=== PATIENT | female | born 1990 | race Hispanic/Latino ===

== ENCOUNTER 2023-01-01 12:13 | Emergency (ER) | payer OTHER, MEDICAID ==
[~2023-01-01] VITALS: Ht 149.9 cm; Wt 142.9 kg
[2023-01-01 12:52] LABS: BASOPHILS % (AUTO) 0.3 % (0.0-5.0); EOSINOPHILS % (AUTO) 0.4 % (0.0-8.0); HEMATOCRIT 35.1 % (36-48); LYMPHOCYTES % (AUTO) 17.2 % (21.0-51.0); MEAN CORPUSCULAR HEMOGLOBIN 27.3 pg (27.0-33.0); MEAN CORPUSCULAR HGB CONC 32.5 g/dL (32.0-36.0); MEAN CORPUSCULAR VOLUME 84.2 fL (79-99); NEUTROPHILS % (AUTO) 72.2 % (40.0-77.0); PLATELET COUNT (AUTO) 258 K/uL (130-400); RED BLOOD CELL COUNT(AUTO) 4.17 MIL/uL (4.00-5.50); RED CELL DISTRIBUTION WIDTH 13.6 % (11.0-15.5); WHITE BLOOD COUNT (AUTO) 9.1 K/uL (4.8-10.8)
[2023-01-01 13:04] LABS: CREATININE 0.6 mg/dL (0.5-1.5); POTASSIUM 3.5 mmol/L (3.5-5.1)
[2023-01-01 13:06] LABS: APPEARANCE,URINE CLOUDY (CLEAR); BILIRUBIN,URINE NEGATIVE (NEGATIVE); COLOR,URINE YELLOW (YELLOW); GLUCOSE, URINE (UA) NEGATIVE (NEGATIVE); KETONES,URINE 20 mg/dL (NEGATIVE); LEUKOCYTE ESTERASE ,URINE 75 Leu/uL (NEGATIVE); NITRATE,URINE NEGATIVE (NEGATIVE); PH,URINE 7.5 (5.0-8.0); PROTEIN,URINE 30 mg/dL (NEGATIVE); UROBILINOGEN,URINE 0.2 mg/dL (0.2-1.0)
[2023-01-01 13:19] LABS: BACTERIA,URINE FEW /HPF (None Seen); MUCUS,URINE RARE LPF (None Seen); SQUAMOUS EPITHELIAL CELL,UR MANY /HPF (0-2)
[2023-01-01 13:30] LABS: ALBUMIN 2.6 g/dL (3.5-5.0); TOTAL PROTEIN, SERUM 7.1 g/dL (6.0-8.3)
[2023-01-01] MEDS ORDERED: ACETAMINOPHEN 500 MG TABLET ONE (13:55)
[2023-01-01] MEDS ORDERED: ONDANSETRON 4MG INJ IVP ONE (14:00)
[2023-01-01] MEDS ORDERED: ACETAMINOPHEN 500 MG TABLET PO ONE (14:00)
[2023-01-01] MEDS ORDERED: ONDANSETRON 4MG INJ ONE (14:00)
[2023-01-01] MEDS ORDERED: MECL-226 PO (14:58)
[2023-01-01 15:04] VITALS: BP 122/55
== END 2023-01-01 15:40 | disposition home or self-care (01) ==
LOC: EDH 12:13
DX: O26.891 Other specified pregnancy related conditions, first trimester (principal); J30.9 Allergic rhinitis, unspecified; Z3A.10 10 weeks gestation of pregnancy; Z98.890 Other specified postprocedural states
CPT/HCPCS: 99283; 96374; 80053; 84702; 85025; 87088; 81001; 36415; J2405

== ENCOUNTER 2023-05-06 23:26 | Observation (INO) | payer OTHER, MEDICAID ==
[~2023-05-06] VITALS: Ht 149.9 cm; Wt 158.8 kg
[~2023-05-06 23:26] MED LIST: MECL-226 PO
[2023-05-07] MEDS ORDERED: LACTATED RINGERS 1000ML 1,000 ML IV SCH
[2023-05-07 00:21] LABS: APPEARANCE,URINE CLEAR (CLEAR); BILIRUBIN,URINE NEGATIVE (NEGATIVE); COLOR,URINE LIGHT-YELLOW (YELLOW); GLUCOSE, URINE (UA) NEGATIVE (NEGATIVE); KETONES,URINE NEGATIVE (NEGATIVE); LEUKOCYTE ESTERASE ,URINE 250 Leu/uL (NEGATIVE); NITRATE,URINE NEGATIVE (NEGATIVE); OCCULT BLOOD,URINE NEGATIVE (NEGATIVE); PROTEIN,URINE 20 mg/dL (NEGATIVE); UROBILINOGEN,URINE 0.2 mg/dL (0.2-1.0)
[2023-05-07 00:30] LABS: MUCUS,URINE RARE LPF (None Seen); SQUAMOUS EPITHELIAL CELL,UR MOD /HPF (0-2)
[2023-05-07 01:25] LABS: AMPHET/METH SCREEN,URINE NEGATIVE (NEGATIVE); BARBITURATE SCREEN, URINE NEGATIVE (NEGATIVE); BENZODIAZEPINES SCREEN,URINE NEGATIVE (NEGATIVE); CANNABINOID SCREEN,URINE NEGATIVE (NEGATIVE); COCAINE SCREEN,URINE NEGATIVE (NEGATIVE); OPIATE SCREEN,URINE NEGATIVE (NEGATIVE); PHENCYCLIDINE SCREEN,URINE NEGATIVE (NEGATIVE)
[2023-05-07 08:26] VITALS: BP 141/67
== END 2023-05-07 08:39 | disposition home or self-care (01) ==
LOC: EDH 23:26 → LDH 23:27
PROVIDERS: ADMIT Obstetrics & Gynecology; ATTEND Obstetrics & Gynecology
DX: O99.891 Other specified diseases and conditions complicating pregnancy (principal); M54.50 Low back pain, unspecified; R10.32 Left lower quadrant pain; R10.2 Pelvic and perineal pain; Z3A.37 37 weeks gestation of pregnancy; Z79.899 Other long term (current) drug therapy; Z98.891 History of uterine scar from previous surgery
CPT/HCPCS: 96361; 59025; 96360; 80305; 87077; 87088; 87186; 81001; G0378 ×7; J7120

== ENCOUNTER 2023-05-17 11:00 | Inpatient (IN) | payer OTHER, MEDICAID ==
[~2023-05-17] VITALS: Ht 149.9 cm; Wt 159.2 kg
[2023-05-17 12:23] LABS: BASOPHILS % (AUTO) 0.3 % (0.0-5.0); EOSINOPHILS % (AUTO) 1.1 % (0.0-8.0); HEMATOCRIT 33.9 % (36-48); LYMPHOCYTES % (AUTO) 23.5 % (21.0-51.0); MEAN CORPUSCULAR HEMOGLOBIN 27.2 pg (27.0-33.0); MEAN CORPUSCULAR HGB CONC 32.4 g/dL (32.0-36.0); MEAN CORPUSCULAR VOLUME 83.7 fL (79-99); MONOCYTES % (AUTO) 7.2 % (3.0-13.0); NEUTROPHILS % (AUTO) 66.9 % (40.0-77.0); PLATELET COUNT (AUTO) 222 K/uL (130-400); RED BLOOD CELL COUNT(AUTO) 4.05 MIL/uL (4.00-5.50); RED CELL DISTRIBUTION WIDTH 14.4 % (11.0-15.5); WHITE BLOOD COUNT (AUTO) 8.9 K/uL (4.8-10.8)
[2023-05-17 13:57] LABS: RAPID PLASMA REAGIN NONREACTIVE (NONREACTIVE)
[2023-05-19] MEDS ORDERED: LACTATED RINGERS 1000ML 1,000 ML IV SCH (08:00)
[2023-05-19] MEDS ORDERED: LACTATED RINGERS 1000ML 1,000 ML IV PRN (08:00)
[2023-05-19] MEDS ORDERED: CEFAZOLIN SODIUM 1 GM VIAL IVPB PRN (08:00)
[2023-05-19] MEDS ORDERED: FENTANYL CITRATE PF 50 MCG/1 ML 2ML VIAL ONE (08:53)
[2023-05-19] MEDS ORDERED: ROPIVACAINE 0.2% 100ML VIAL 100 ML EP SCH (09:00)
[2023-05-19] MEDS ORDERED: LACTATED RINGERS 500 ML 500 ML IV PRN (09:00)
[2023-05-19] MEDS ORDERED: EPHEDRINE SULFATE 50 MG/ML AMPULE IVP PRN (09:00)
[2023-05-19] MEDS ORDERED: NALOXONE HCL 0.4 MG/1 ML ML IV PRN (09:00)
[2023-05-19] MEDS ORDERED: MORPHINE PF 100MG/10ML AMP IV ONE (09:04)
[2023-05-19] MEDS ORDERED: ONDANSETRON 4MG INJ ONE (09:27)
[2023-05-19] MEDS ORDERED: OXYTOCIN 10 USP UNITS/ML ONE (09:51)
[2023-05-19 12:31] LABS: APPEARANCE,URINE CLOUDY (CLEAR); BILIRUBIN,URINE NEGATIVE (NEGATIVE); COLOR,URINE YELLOW (YELLOW); GLUCOSE, URINE (UA) NEGATIVE (NEGATIVE); KETONES,URINE NEGATIVE (NEGATIVE); LEUKOCYTE ESTERASE ,URINE 500 Leu/uL (NEGATIVE); NITRATE,URINE NEGATIVE (NEGATIVE); OCCULT BLOOD,URINE NEGATIVE (NEGATIVE); PH,URINE 6.5 (5.0-8.0); PROTEIN,URINE 100 mg/dL (NEGATIVE); UROBILINOGEN,URINE 0.2 mg/dL (0.2-1.0)
[2023-05-19 12:39] LABS: BACTERIA,URINE RARE /HPF (None Seen); MUCUS,URINE RARE LPF (None Seen); OTHER CASTS, URINE 8 /LPF (None Seen); SQUAMOUS EPITHELIAL CELL,UR MANY /HPF (0-2); TRANSITIONAL EPI CELLS,URINE RARE /HPF (None Seen); WBC,URINE 26-50 /HPF (0-1)
[2023-05-19 12:43] VITALS: BP 102/49; PULSE 66; RESP 20
[2023-05-19] MEDS ORDERED: CEFAZOLIN SODIUM 1 GM VIAL IVPB SCH (13:00)
[2023-05-19] MEDS ORDERED: OXYTOCIN-LR 30 UNITS/500ML 500 ML IV PRN (13:00)
[2023-05-19] MEDS ORDERED: MEPERIDINE-PF 75 MG/ML SYG IM PRN (13:00)
[2023-05-19] MEDS ORDERED: PROMETHAZINE HCL 25 MG/ML 1ML AMPULE IM PRN (13:00)
[2023-05-19] MEDS ORDERED: 0.9%NACL 10ML VIAL IVP PRN (13:00)
[2023-05-19] MEDS ORDERED: AEC81 PO (13:02)
[2023-05-19] MEDS ORDERED: PREN1TAB80 PO (13:02)
[2023-05-19] MEDS: DEXTROSE 5 %-0.45 % NACL 1,000 ML IV PRN (15:44)
[2023-05-19 16:12] VITALS: BP 139/87; PULSE 69; RESP 16
[2023-05-19] MEDS ORDERED: CEFAZOLIN SODIUM 2 GM VIAL ONE (17:58)
[2023-05-19] MEDS: CEFAZOLIN SODIUM 1 GM VIAL IVPB SCH (18:02)
[2023-05-19 19:40] VITALS: BP 160/87; PULSE 66; RESP 18
[2023-05-19 23:55] VITALS: BP 163/82; PULSE 70; RESP 18
[2023-05-20] MEDS ORDERED: ACETAMINOPHEN WITH CODEINE 1 TAB TAB PO PRN
[2023-05-20] MEDS ORDERED: BISACODYL 10 MG SUPP.RECT RC PRN
[2023-05-20] MEDS ORDERED: ACETAMINOPHEN 500 MG TABLET PO PRN
[2023-05-20] MEDS ORDERED: HYDROCODONE/ACETAMINOPHEN 5/325 MG TAB PO PRN
[2023-05-20] MEDS ORDERED: LANOLIN 30GM OINTMENT TP PRN
[2023-05-20] MEDS ORDERED: SIMETHICONE 80 MG TAB.CHEW PO PRN
[2023-05-20] MEDS: DEXTROSE 5 %-0.45 % NACL 1,000 ML IV PRN (02:35)
[2023-05-20 03:59] VITALS: BP 150/77; PULSE 78; RESP 18
[2023-05-20] MEDS: CEFAZOLIN SODIUM 1 GM VIAL IVPB SCH ×2 (04:44→04:46)
[2023-05-20 06:25] LABS: HEMATOCRIT 34.7 % (36-48); MEAN CORPUSCULAR HEMOGLOBIN 26.7 pg (27.0-33.0); MEAN CORPUSCULAR HGB CONC 32.6 g/dL (32.0-36.0); RED BLOOD CELL COUNT(AUTO) 4.23 MIL/uL (4.00-5.50); RED CELL DISTRIBUTION WIDTH 14.6 % (11.0-15.5); WHITE BLOOD COUNT (AUTO) 11.2 K/uL (4.8-10.8)
[2023-05-20 08:05] VITALS: BP 154/78; PULSE 73; RESP 20
[2023-05-20] MEDS ORDERED: DOCUSATE SODIUM 100 MG CAP PO SCH (09:00)
[2023-05-20] MEDS: IBUPROFEN 600 MG TABLET PO PRN ×2 (09:20→14:26)
[2023-05-20 12:24] VITALS: BP 134/75; PULSE 73; RESP 20
[2023-05-20] MEDS ORDERED: DIPH,PERTUSS(ACELL),TET VAC/PF 0.5 ML VIAL IM ONE (12:30)
== END 2023-05-20 15:40 | disposition home or self-care (01) | DRG 788 ==
LOC: LDH 05-19 06:50 → WSH 05-19 12:40
PROVIDERS: ADMIT Obstetrics & Gynecology; ATTEND Obstetrics & Gynecology
PROC: 10D00Z1 Extraction of Products of Conception, Low, Open Approach (ICD-10-PCS; principal; 2023-05-19 09:00)
PROC: 3E0234Z Introduction of Serum, Toxoid and Vaccine into Muscle, Percutaneous Approach (ICD-10-PCS; 2023-05-20)
DX: O82 Encounter for cesarean delivery without indication (principal); O34.211 Maternal care for low transverse scar from previous cesarean delivery; Z20.822 Contact with and (suspected) exposure to COVID-19; O69.81X0 Labor and delivery complicated by cord around neck, without compression, not applicable or unspecified; Z3A.39 39 weeks gestation of pregnancy; Z37.0 Single live birth; Z23 Encounter for immunization; O99.02 Anemia complicating childbirth
CPT/HCPCS: 36415; 59510; 81001; 84270; 85025; 85027; 86592; 86701; 86850; 86900; 86901; 87088; 87340; 87390; 87426; 90715; A4344; A4606; G0378; J0690; J2274; J2405; J2590; J3010; J7120; A4248